=== PATIENT | male | born 1960 | race Hispanic/Latino ===

== ENCOUNTER 2016-10-30 17:34 | Emergency (ER) | payer BC ==
[2016-10-30 17:34] VITALS: BMI 31.2
--- NOTE | 2016-10-30 18:01 | ED PDOC ---
Lower Extremity Pain/Injury Time Seen by Provider: 10/30/16 17:55 Chief Complaint (Nursing): Lower Extremity Problem/Injury History Per: Patient History/Exam Limitations: no limitations Additional Complaint(s): David Copeland is a 55 yea rold male, with a previous medical history of gout, hypertension and rheumatoid arthritis, who presents to the ED with complaints of atraumatic right foot pain associated with swelling ongoing for one day. Patient denies any fever or chills. He reports being scheduled for surgery with a Dr. Elliott on November 17, 2016 for heel spurs. Patient reports to taking 4 Tylenol pills with no relief prompting ED visit. Denies fever, rash, numbness, tingling. PMD: Angleo Kristen Past Medical History Reviewed: Historical Data, Nursing Documentation, Vital Signs Vital Signs: Last Vital Signs Temp 98.8 F 10/30/16 17:56 Pulse 87 10/30/16 17:56 Resp 16 10/30/16 17:56 BP 174/93 H 10/30/16 17:56 Pulse Ox 99 10/30/16 17:56 - Medical History PMH: HTN, Osteoporosis, Rheumatoid Arthritis Denies: HIV - Family History Family History: States: Unknown Family Hx - Home Medications Home Medications: Ambulatory Orders Medication Instructions Recorded Clonidine 0.1 mg TD TID PRN #30 tab 02/17/14 predniSONE [predniSONE Tab] 20 mg PO DAILY #12 tab 02/21/16 predniSONE [predniSONE Tab] 20 mg PO DAILY 12 Days 02/29/16 predniSONE [predniSONE Tab] 20 mg PO DAILY 9 Days 03/10/16 Cephalexin [cephalexin] 500 mg PO Q6 #28 cap 10/30/16 Colchicine 0.6 mg PO DAILY PRN #30 capsule 10/30/16 Methylprednisolone [Medrol Dose 4 mg PO DAILY #21 mg 10/30/16 Pack (21 tabs)] - Allergies Allergies/Adverse Reactions: Allergies Allergy/AdvReac Type Severity Reaction Status Date / Time diclofenac Allergy URTICARIA Verified 10/30/16 18:00 Review of Systems ROS Statement: Except As Marked, All Systems Reviewed And Found Negative Constitutional: Negative for: Fever, Chills Musculoskeletal: Positive for: Foot Pain (right ) Physical Exam - Reviewed Nursing Documentation Reviewed: Yes Vital Signs Reviewed: Yes - Physical Exam Appears: Positive for: Well, Non-toxic, No Acute Distress Pulses-Dorsalis Pedis (R): 2+ Extremity: Positive for: Normal ROM, Tenderness (minimal to the right foot ), Capillary Refill (< 2 seconds ), Swelling (minimal to the right foot). Negative for: Pedal Edema, Calf Tenderness, Deformity, Other (break in skin integrity ) Neurologic/Psych: Positive for: Alert, Oriented - Laboratory Results Result Diagrams: 10/30/16 18:37 10/30/16 18:37 - ECG O2 Sat by Pulse Oximetry: 99 (RA) Pulse Ox Interpretation: Normal - Radiology X-Ray: Interpreted by Me (Foot x-ray) X-Ray Interpretation: Other (heel spur; no fx) - Progress ED Course And Treament: WBC: 20.2. As per pt. in 08/2016 he was found to have WBC of 21 and had a biopsy of his bone marrow done which was negative. Case d/w Dr. Sen and decesision was made to give patient Keflex and Ancef IV due to erythema and warmth on foot. Case d/w Sarai, podiatry resident, who spoke with Dr. Elliott who agrees with care and requests that pt. f/u in his office on Tuesday. VBG drawn. Lactate 1.2. Ancef 1gm IV given. Pt. reports no pain relief. Morphine 2mg IV, zofran 4mg IV given. Pt. evaluated by Sarai in ED. Medical Decision Making Medical Decision Making: Initial Impression: Foot Pain Initial Plan: * x-ray right foot * uric acid * labs * ultram * reevaluation Scribe Attestation: Documented by Ela Centeno acting as a scribe for Bong Nicole PA-C Provider Attestation: All medical record entries made by the Scribe were at my direction and personally dictated by me. I have reviewed the chart and agree that the record accurately reflects my personal performance of the history, physical exam, medical decision making, and the department course for this patient. I have also personally directed, reviewed, and agree with the discharge instructions and disposition. Disposition - Clinical Impression Clinical Impression: Leukocytosis, Gout - Patient ED Disposition Is Patient to be Admitted: No - Disposition Referrals: Ariel Elliott DPM [Staff Provider] - Disposition: Routine/Home Disposition Time: 20:22 Condition: IMPROVED Additional Instructions: Follow up with Dr. Elliott on Tuesday WITHOUT FAIL. Prescriptions: Cephalexin [cephalexin] 500 mg PO Q6 #28 cap Colchicine 0.6 mg PO DAILY PRN #30 capsule PRN Reason: gout attack Methylprednisolone [Medrol Dose Pack (21 tabs)] 4 mg PO DAILY #21 mg Instructions: Gout (ED), Leukocytosis (ED) Forms: [facility] ED School/Work Excuse
[2016-10-30 18:03] VITALS: BP 174/93; PULSE 87; RESP 16; TEMP 98.8; O2SAT 99
[2016-10-30 18:48] LABS: BASO # 0.1 K/uL (0.0-0.2); BASO % 0.4 % (0.0-2.0); EOS # 0.1 K/uL (0.0-0.7); EOS % 0.6 % (0.0-4.0); HEMATOCRIT 44.9 % (35.0-51.0); LYMPH % 9.7 % (20.0-40.0); MEAN CELL VOLUME 91.4 fl (80.0-94.0); MEAN CORPUSCULAR HEMOGLOBIN 29.9 pg (27.0-31.0); MEAN CORPUSCULAR HGB CONC 32.7 g/dL (33.0-37.0); MEAN PLATELET VOLUME 9.6 fl (7.2-11.7); MONO # 1.2 K/uL (0.0-0.8); MONO % 6.1 % (0.0-10.0); NEUT # 16.8 K/uL (1.8-7.0); NEUT % 83.2 % (50.0-75.0); PLATELET COUNT 224 K/uL (130-400); RED CELL DISTRIBUTION WIDTH 13.3 % (11.5-14.5); WHITE BLOOD COUNT 20.2 K/uL (4.8-10.8)
[2016-10-30 19:02] LABS: ALB/GLOB RATIO 1.7 (1.0-2.1); ALKALINE PHOSPHATASE 75 U/L (38-126); ALT/SGPT 28 U/L (21-72); AST/SGOT 20 U/L (17-59); BILIRUBIN,TOTAL 0.5 mg/dl (0.2-1.3); BLOOD UREA NITROGEN 12 mg/dl (9-20); CARBON DIOXIDE 22 mmol/L (22-30); GFR AFRICAN-AMERICAN > 60; GLUCOSE,RANDOM 107 mg/dL (75-110); POTASSIUM 3.8 MMOL/L (3.6-5.0); SODIUM 138 mmol/l (132-148); TOTAL PROTEIN 6.8 G/DL (6.3-8.2); URIC ACID 9.4 mg/Dl (3.5-8.5)
[2016-10-30 19:04] LABS: CHLORIDE 104 mmol/L (98-107)
[2016-10-30] MEDS ORDERED: ceFAZolin 1 GM in Sodium Chloride 0.9% 100 ML IVPB STA (19:14)
[2016-10-30 19:41] LABS: VENOUS BLOOD GAS PCO2 45 mmHg (40-60); VENOUS BLOOD PH 7.38 (7.32-7.43)
[2016-10-30 19:55] LABS: NEUTROPHIL 79 % (42-75); TOTAL CELLS COUNTED 100
--- NOTE | 2016-10-30 20:52 | CP.PCM.CON ---
History of Present Illness - History of Present Illness History of Present Illness: Mr. Copeland is a 55 yo male w/ pmhx sign. for gout, HTN, rheumatoid arthritis who presents to the ED today with chief complaint of severe pain to the right foot. Pt says that he has noticed increased pain and swelling to this foot x 1 day in duration. Says that he was working on his feet all day today and decided to come in because the pain was unbearable. Says he tried taking 4 tylenols with no relief. Denies any trauma/injury to the foot, he does say that he has a history of gout flares to both feet and knees in the past. Denies recent illness , f/n/v/c/sob/cp. Denies any other pedal complaints. 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 Elliott November 17 for plantar fasciitis. Review of Systems - Review of Systems Review of Systems: All systems reviewed and found to be negative except HPI findings above Past Patient History - Past Social History Smoking Status: Never Smoked - CARDIAC Hx Hypertension: Yes - NEUROLOGICAL Hx Dizziness: Yes (Comes and goes, Dr. Hwang aware/patient) - HEMATOLOGICAL/ONCOLOGICAL Hx Human Immunodeficiency Virus (HIV): No - INTEGUMENTARY Hx Dermatological Problems: No - MUSCULOSKELETAL/RHEUMATOLOGICAL Hx Osteoporosis: Yes Hx Rheumatoid Arthritis: Yes - GASTROINTESTINAL Hx Gastrointestinal Disorders: No - GENITOURINARY/GYNECOLOGICAL Hx Genitourinary Disorders: No - PSYCHIATRIC Hx Psychophysiologic Disorder: No Hx Substance Use: No - SURGICAL HISTORY Hx Surgeries: Yes Hx Musculoskeletal Surgery: Yes (b/l knees and r ankle) - ANESTHESIA Hx Anesthesia: Yes Meds Home Medications: Home Medication List Medication Instructions Recorded Confirmed Type Cephalexin [cephalexin] 500 mg PO Q6 #28 cap 10/30/16 Rx Colchicine 0.6 mg PO DAILY PRN #30 capsule 10/30/16 Rx Methylprednisolone [Medrol Dose 4 mg PO DAILY #21 mg 10/30/16 Rx Pack (21 tabs)] Allergies/Adverse Reactions: Allergies Allergy/AdvReac Type Severity Reaction Status Date / Time diclofenac Allergy URTICARIA Verified 10/30/16 18:00 Physical Exam - Constitutional Appears: Well, Non-toxic, No Acute Distress - Extremities Exam Extremities exam: Negative for: calf tenderness Additional comments: RLE focused exam: VASC- DP/PT pulses are fully palpable, skin temp runs warm to warm (no increase in calor), cap refill < 3 sec to all digits, moderate non-pitting edema noted to dorsal-medial and plantar-medial aspect of foot DERM- no open wounds, slight erythema noted to plantar aspect of 1st MTPJ, slight scaling of skin noted plantar aspect 1st MTPJ NEURO- pedal sensation grossly intact ORTHO- diffuse tenderness noted on palpation of dorsal-medial midfoot and also on palpation of medial calcaneal tubercle - Neurological Exam Neurological exam: Alert, CN II-XII Intact, Oriented x3 - Psychiatric Exam Psychiatric exam: Normal Affect, Normal Mood Results - Vital Signs Recent Vital Signs: Last Vital Signs Temp 98.8 F 10/30/16 17:56 Pulse 87 10/30/16 17:56 Resp 16 10/30/16 17:56 BP 174/93 H 10/30/16 17:56 Pulse Ox 99 10/30/16 20:25 - Labs Result Diagrams: 10/30/16 18:37 10/30/16 18:37 Labs: Laboratory Results - last 24 hr 10/30/16 10/30/16 10/30/16 18:37 18:37 19:35 WBC 20.2 H D RBC 4.91 Hgb 14.7 Hct 44.9 MCV 91.4 MCH 29.9 MCHC 32.7 L RDW 13.3 Plt Count 224 MPV 9.6 Neut % (Auto) 83.2 H Lymph % (Auto) 9.7 L Esmeralda % (Auto) 6.1 Eos % (Auto) 0.6 Baso % (Auto) 0.4 Neut # 16.8 H Lymph # 2.0 Esmeralda # 1.2 H Eos # 0.1 Baso # 0.1 Neutrophils % (Manual) 79 H Band Neutrophils % 1 Lymphocytes % (Manual) 12 L Monocytes % (Manual) 8 Platelet Estimate Normal pO2 39 VBG pH 7.38 VBG pCO2 45 VBG HCO3 25.0 VBG Total CO2 28.0 VBG O2 Sat (Calc) 71.1 H VBG Base Excess 1.0 VBG Potassium 4.0 Glucose 91 Lactate 1.2 FiO2 21.0 Sodium 138 137.0 Potassium 3.8 Chloride 104 104.0 Carbon Dioxide 22 Anion Gap 16 BUN 12 Creatinine 1.0 Est GFR ( Amer) > 60 Est GFR (Non-Af Amer) > 60 Random Glucose 107 Uric Acid 9.4 H Calcium 9.0 Total Bilirubin 0.5 AST 20 ALT 28 Alkaline Phosphatase 75 Total Protein 6.8 Albumin 4.3 Globulin 2.6 Albumin/Globulin Ratio 1.7 Venous Blood Potassium 4.0 Assessment & Plan - Assessment and Plan (Free Text) Assessment: 55 yo male pt with right foot pain likely 2/2 chronic plantar fasciitis and concomitant gouty flare. Plan: Pt S&E at bedside in ED Plan discussed with attending Dr. Elliott and CHANDAN Woody in detail. X-rays right foot (interpreted by me): plantar calcaneal spur noted, no acute fx 's or dislocations evident Chart labs and vitals reviewed: * leukocytosis (20.2k) noted w/ neutrophilic left shift (83.2%) * VBG: lactate WNL (1.2) * Uric acid: elevated (9.4) STAT dose of IV ancef given per ED STAT dose tramadol given, followed by STAT dose morphine 2mg per ED with pain relief noted Discussed with pt and addressed all questions and concerns with pt Recommend medrol dose janet and colchicine Pt to receive Ancef po for discharge Advised pt to take all medications as prescribed Refused surgical shoe, advised pt to use CAM walker or surgical shoe at home Advised pt to f/u with Dr. Elliott at the office Tuesday Stable per podiatry for discharge home
--- NOTE | 2016-10-31 11:04 | RAD ---
PROCEDURE: Right Foot Radiographs. HISTORY: pain COMPARISON: None. FINDINGS: BONES: Normal. No fracture. JOINTS: Normal. SOFT TISSUES: Normal. OTHER FINDINGS: Plantar heel spur. IMPRESSION: No fracture.
== END 2016-10-30 20:30 | disposition home or self-care (01) ==
LOC: H.ER 17:34
DX: D72.829 Elevated white blood cell count, unspecified (principal); M10.9 Gout, unspecified
CPT/HCPCS: 73630; 80053; 82803; 84550; 85025; 96365; 96375; 99283; J0690; J2270; J2405

== ENCOUNTER 2017-08-15 18:57 | Emergency (ER) | payer BC ==
[2017-08-15 19:52] VITALS: BMI 30.7
[2017-08-15 19:55] VITALS: BP 170/107; PULSE 77; RESP 16; TEMP 98; O2SAT 98
[2017-08-15] MEDS ORDERED: Naproxen 500 MG TAB PO STA ×2 (21:16→22:01)
--- NOTE | 2017-08-15 21:32 | ED PDOC ---
Lower Extremity Pain/Injury Time Seen by Provider: 08/15/17 20:38 Chief Complaint (Nursing): Lower Extremity Problem/Injury Chief Complaint (Provider): Left foot pain History Per: Patient History/Exam Limitations: no limitations Onset/Duration Of Symptoms: Days Current Symptoms Are (Timing): Still Present Additional History Per: Patient Additional Complaint(s): 56yo male, with history of gout and multiple surgeries to his left foot, presents to ED for evaluation of left foot pain, stating his "back tendon" might be torn. He states the pain is worse with walking and first started when he was cleaning snow a couple days ago. He has been taking Advil for his pain, last took 2 tablets at 9am with minimal relief. He denies any injuries, trauma, weakness, numbness or tingling to his foot. He offers no other medical complaints at this time. Patient reports he has been intermittently using crutches to relief his discomfort. PMD: Dr. Hwang Past Medical History Reviewed: Historical Data, Nursing Documentation, Vital Signs Vital Signs: Last Vital Signs Temp 98 F 08/15/17 19:53 Pulse 77 08/15/17 19:53 Resp 16 08/15/17 19:53 BP 170/107 H 08/15/17 19:53 Pulse Ox 98 08/15/17 19:53 - Medical History PMH: HTN, Osteoporosis, Rheumatoid Arthritis Denies: HIV - Surgical History Other surgeries: mutliple surgeries to bilateral feet, knees - Family History Family History: States: Unknown Family Hx, CAD - Home Medications Home Medications: Ambulatory Orders Medication Instructions Recorded Clonidine 0.1 mg TD TID PRN #30 tab 02/17/14 predniSONE [predniSONE Tab] 20 mg PO DAILY #12 tab 02/21/16 predniSONE [predniSONE Tab] 20 mg PO DAILY 12 Days tab 02/29/16 predniSONE [predniSONE Tab] 20 mg PO DAILY 9 Days tab 03/10/16 Cephalexin [cephalexin] 500 mg PO Q6 #28 cap 10/30/16 Colchicine 0.6 mg PO DAILY PRN #30 capsule 10/30/16 Methylprednisolone [Medrol Dose 4 mg PO DAILY #21 mg 10/30/16 Pack (21 tabs)] Naproxen/Esomeprazole Mag [Vimovo 1 each PO BID #20 tab 08/15/17 500-20 mg Tablet] - Allergies Allergies/Adverse Reactions: Allergies Allergy/AdvReac Type Severity Reaction Status Date / Time diclofenac Allergy URTICARIA Verified 08/15/17 19:52 Review of Systems ROS Statement: Except As Marked, All Systems Reviewed And Found Negative Musculoskeletal: Positive for: Foot Pain (left) Neurological: Negative for: Weakness, Numbness Physical Exam - Reviewed Nursing Documentation Reviewed: Yes Vital Signs Reviewed: Yes - Physical Exam Comments: GENERAL APPEARANCE: Patient is awake, alert, oriented x 3, in no acute distress. SKIN: Warm, dry; (-) cyanosis. LOWER EXTREMITY: Ankle: no swelling, no tenderness of the medial aspect of the ankle; no swelling and tenderness of the lateral malleolus; (+) FROM of foot, including dorsi-flexion and plantar-flexion both actively and passively. (+) tenderness to posterior left foot/ankle with no erythema or swelling (-) tenderness to dorsum of left foot Achilles tendon intact and with tenderness. Knee and foot: (-) injury, (+) healed surgical scar to distal anterior lower leg and dorsum of proximal left foot. (-) calf tenderness (-) palpable cord (-) pedal edema CARDIOVASCULAR: (+) distal pulse. NEUROLOGIC: (+) distal sensation. CARDIAC: (-) murmur RESPIRATORY: lungs clear to auscultation bilaterally (-) rales (-) wheezing (-) rhonchi - ECG O2 Sat by Pulse Oximetry: 98 (RA) Pulse Ox Interpretation: Normal Medical Decision Making Medical Decision Making: Impression: Achilles tendon sprain, acute ankle pain Plan: -- XR Left ankle -- Naproxen 500 mg PO 2245 XR reviewed: post surgical changes otherwise no acute fracture or dislocation. Patient advised that official radiology read of XR is still pending and will call the patient if there is any discrepancy within 24 hours. On re-evaluation, patient reports improvement of symptoms. On exam, patient remains AAOx3, in no acute distress. On exam, neck is supple, lungs CTA, cardiac RRR, abdomen is soft and non-tender, neuro exam shows no focal findings. Patient states he has an appointment with his ortho doctor tomorrow morning. Patient advised to use his crutches as needed. RICE encouraged. Diagnostic results d/w the patient in great detail. Dx of acute ankle pain, likely sprain d/w the patient. Based on history, exam and diagnostic results plan will be for discharge and outpatient follow up. Advised to follow up with primary care physician in 1-2 days without fail. Advised to take medication as prescribed. Return to the emergency room at any time for any new or worsening symptoms. Patient states he fully agrees with and understands discharge instructions. States that he agrees with the plan and disposition. Verbalized and repeated discharge instructions and plan. I have given the patient opportunity to ask any additional questions. Scribe Attestation: Documented by Cindy Fernandes acting as a scribe for CHANDAN Burch Provider Attestation: All medical record entries made by the Scribe were at my direction and personally dictated by me. I have reviewed the chart and agree that the record accurately reflects my personal performance of the history, physical exam, medical decision making, and the department course for this patient. I have also personally directed, reviewed, and agree with the discharge instructions and disposition. Disposition - Clinical Impression Clinical Impression: Ankle pain, Achilles tendon sprain - Patient ED Disposition Is Patient to be Admitted: No Counseled Patient/Family Regarding: Studies Performed, Diagnosis, Need For Followup, Rx Given - Disposition Disposition: Routine/Home Disposition Time: 22:47 Condition: STABLE Prescriptions: Naproxen/Esomeprazole Mag [Vimovo Dr 500-20 mg Tablet] 1 each PO BID #20 tab Instructions: Ankle Sprain Forms: [facility] (French) Print Language: ICELANDIC - POA Present On Arrival: None
[2017-08-15] MEDS ORDERED: Naproxen 500 MG TAB PO ONE (21:48)
--- NOTE | 2017-08-16 09:37 | RAD ---
PROCEDURE: Left Ankle Radiographs. HISTORY: pain COMPARISON: None FINDINGS: BONES: No acute fracture. Orthopedic screw transfixing the medial malleolus. Osteophyte versus exostosis along the medial distal tibia. JOINTS: Ankle mortise maintained. Talar dome intact SOFT TISSUES: Normal. OTHER FINDINGS: Inferior plantar calcaneal spur. IMPRESSION: No demonstrated acute fracture or dislocation.
== END 2017-08-15 22:58 | disposition home or self-care (01) ==
LOC: H.ER 18:57
DX: S86.012A Strain of left Achilles tendon, initial encounter (principal); M25.572 Pain in left ankle and joints of left foot; I10 Essential (primary) hypertension; M06.9 Rheumatoid arthritis, unspecified; M81.0 Age-related osteoporosis without current pathological fracture